=== PATIENT | male | born 1965 | race Caucasian/White ===

== ENCOUNTER 2020-08-28 17:38 | Inpatient (IN) ==
[2020-08-29] MEDS ORDERED: Acetaminophen 325 MG TABLET PO PRN (00:32)
[2020-08-29] MEDS ORDERED: Ondansetron 4 MG/2 ML VIAL IVP PRN (00:32)
[2020-08-29] MEDS ORDERED: Naloxone 0.4 MG/ML INJ IVP PRN (00:32)
[2020-08-29] MEDS ORDERED: Dextrose Gel 15 GM/37.5 ML TUBE PO PRN ×2 (00:34)
[2020-08-29] MEDS ORDERED: D5% in Water 1,000 ML IVC PRN (00:34)
[2020-08-29] MEDS ORDERED: *HR* Dextrose 50 % in Water (Vial) 50 ML VIAL IVP PRN (00:34)
[2020-08-29] MEDS ORDERED: 0.9 % Sodium Chloride 1,000 ML IVC SCH (00:45)
[2020-08-29] MEDS ORDERED: Perflutren Lipid Microsphere 1.3 ML in 0.9 % Sodium Chloride 8.7 ML IVP PRN (00:49)
[2020-08-29] MEDS: Insulin DETEMIR 100 UNIT/ML X5UNITS SUBQ SCH ×2 (01:17→21:01)
[2020-08-29 01:25] LABS: Red Cell Distribution Width 14.2 % (11.5-14.5); Segmented Neutrophils % 51.6 %
[2020-08-29 01:27] LABS: Basophils # 0.1 K/mcL (0.0-0.2); Basophils % 1.2 %; Eosinophils # 0.3 K/mcL (0.0-0.6); Eosinophils % 4.8 %; Hematocrit 43.8 % (37.5-50.1); Immature Granulocytes % 0.9 % (0-4); Immature Platelets 7.5 % (1.1-6.1); Lymphocytes # 1.7 K/mcL (0.6-4.6); Lymphocytes % 30.7 %; Mean Corpuscular Hemoglobin 28.6 pg (28.0-33.3); Mean Corpuscular Volume 89.4 fL (83.0-100.0); Mean Platelet Volume 11.4 fL (9.4-12.4); Monocytes # 0.6 K/mcL (0.0-1.3); Monocytes % 10.8 %; Neutrophils # 2.9 K/mcL (1.6-8.9); Platelet Count 127 K/mcL (140-400); White Blood Count 5.6 K/mcL (4.3-11.1)
[2020-08-29 01:36] LABS: INR 1.1; Prothrombin Time 12.2 Seconds (9.4-12.1)
[2020-08-29 01:38] LABS: Alanine Aminotransferase 9 Units/L (7-52); Albumin 3.8 g/dL (3.5-5.7); Albumin/Globulin Ratio 1.6 (1.1-2.2); Alkaline Phosphatase 51 Units/L (34-104); Aspartate Amino Transferase 10 Units/L (13-39); BUN/Creatinine Ratio 18 (6-26); Bilirubin,Total 0.4 mg/dL (0.3-1.0); Blood Urea Nitrogen 16 mg/dL (6-20); Calcium 8.7 mg/dL (8.6-10.3); Carbon Dioxide 25 mEq/L (23-29); Chloride 106 mEq/L (98-107); Chol/HDL Ratio 3.9 (0-4.9); Cholesterol 131 mg/dL (< 200); Globulin 2.4 g/dL (2.4-3.5); Glucose 267 mg/dL (70-105); HDL Cholesterol 34 mg/dL (40-59); LDL Cholesterol,Calculated 61 mg/dL (< 100); Osmolality,Calculated 301 (280-300); Potassium 3.7 mEq/L (3.5-5.1); Sodium 140 mEq/L (136-145); Total Protein 6.2 g/dL (6.4-8.9); Triglycerides 182 mg/dL (< 150); Troponin I < 0.03 ng/mL (< 0.04); eGFR For African Americans > 60 (> 60); eGFR For Non-African Americans > 60 (> 60)
[2020-08-29] MEDS: Insulin LISPRO 300 UNITS/3 ML VIAL SUBQ SCH ×6 (01:57→20:59)
[2020-08-29 04:04] LABS: Estimated Average Glucose 301 mg/dl; Hemoglobin A1C 12.1 %
[2020-08-29 06:57] LABS: Bacteria,Urine Few per hpf (None-Few); Bilirubin,Urine Negative (Negative); Blood,Urine Negative (Negative); Clarity,Urine Clear (Clear); Color,Urine Light-Yellow (Yellow); Glucose,Urine (UA) >=1000 mg/dL (Normal); Ketones,Urine Negative (Negative); Leukocyte Esterase,Urine Large (Negative); Nitrite,Urine Negative (Negative); PH,Urine 5.5 pH Units (5.0-8.0); Protein,Urine Trace mg/dL (Neg-Trace); Specific Gravity,Urine 1.028 (1.010-1.025); Squamous Epithelial Cell,Urine Few per hpf (None-Few); Urobilinogen,Urine Normal (Normal); WBC,Urine 50-100 per hpf (0-3)
[2020-08-29] MEDS: *HR* Heparin 5,000 UNIT/ML VIAL SQ SCH ×2 (15:06→20:36)
[2020-08-29] MEDS: Baclofen 10 MG TABLET PO SCH (20:33)
[2020-08-29] MEDS: Divalproex (24 HR) 500 MG TABLET PO SCH (20:34)
[2020-08-29] MEDS: traZODone 50 MG TABLET PO SCH (20:35)
[2020-08-29] MEDS: Mirtazapine 15 MG TABLET PO SCH (20:35)
[2020-08-29] MEDS: Pregabalin 75 MG CAPSULE PO SCH (20:35)
[2020-08-29] MEDS ORDERED: NON-FORMULARY MEDICATION 1 EACH EACH (Insulin Glargine,Hum.Rec.Anlog [Lantus Solostar] 100 SQ SCH (21:00)
[2020-08-30 02:12] LABS: Hematocrit 47.4 % (37.5-50.1); Hemoglobin 14.9 g/dL (12.9-16.9); Mean Corpuscular HGB Conc 31.4 g/dL (31.6-35.5); Mean Corpuscular Hemoglobin 28.4 pg (28.0-33.3); Mean Corpuscular Volume 90.5 fL (83.0-100.0); Mean Platelet Volume 11.1 fL (9.4-12.4); Platelet Count 143 K/mcL (140-400); Red Blood Count 5.24 M/mcL (4.19-5.50); Red Cell Distribution Width 14.5 % (11.5-14.5); White Blood Count 5.9 K/mcL (4.3-11.1)
[2020-08-30 02:29] LABS: BUN/Creatinine Ratio 18 (6-26); Blood Urea Nitrogen 15 mg/dL (6-20); Calcium 9.4 mg/dL (8.6-10.3); Carbon Dioxide 27 mEq/L (23-29); Chloride 108 mEq/L (98-107); Glucose 111 mg/dL (70-105); Magnesium 1.9 mg/dL (1.6-2.6); Osmolality,Calculated 300 (280-300); Potassium 3.6 mEq/L (3.5-5.1); Sodium 144 mEq/L (136-145); eGFR For African Americans > 60 (> 60); eGFR For Non-African Americans > 60 (> 60)
[2020-08-30] MEDS: Insulin LISPRO 300 UNITS/3 ML VIAL SUBQ SCH ×6 (05:56→20:21)
[2020-08-30] MEDS: *HR* Heparin 5,000 UNIT/ML VIAL SQ SCH ×3 (05:58→20:14)
[2020-08-30] MEDS: ARIPiprazole 5 MG TABLET PO SCH (08:29)
[2020-08-30] MEDS: Baclofen 10 MG TABLET PO SCH ×2 (08:29→20:15)
[2020-08-30] MEDS: Pregabalin 75 MG CAPSULE PO SCH ×2 (08:29→20:14)
[2020-08-30] MEDS: Magnesium Oxide 400 MG TABLET PO SCH (08:29)
[2020-08-30] MEDS ORDERED: NON-FORMULARY MEDICATION 1 EACH EACH (Ezetimibe [Zetia] 10 MG Tablet) PO SCH (09:00)
[2020-08-30] MEDS: atenoloL 50 MG TABLET PO SCH (13:49)
[2020-08-30] MEDS ORDERED: Ibuprofen 400 MG TABLET PO PRN (15:07)
[2020-08-30] MEDS: Mirtazapine 15 MG TABLET PO SCH (20:14)
[2020-08-30] MEDS: Divalproex (24 HR) 500 MG TABLET PO SCH (20:15)
[2020-08-30] MEDS: traZODone 50 MG TABLET PO SCH (20:15)
[2020-08-30] MEDS: Insulin DETEMIR 100 UNIT/ML X5UNITS SUBQ SCH (20:21)
[2020-08-31] MEDS: Insulin LISPRO 300 UNITS/3 ML VIAL SUBQ SCH ×4 (05:16→19:00)
[2020-08-31 05:30] LABS: Hematocrit 45.9 % (37.5-50.1); Hemoglobin 14.5 g/dL (12.9-16.9); Mean Corpuscular HGB Conc 31.6 g/dL (31.6-35.5); Mean Corpuscular Hemoglobin 28.9 pg (28.0-33.3); Mean Corpuscular Volume 91.6 fL (83.0-100.0); Mean Platelet Volume 11.6 fL (9.4-12.4); Platelet Count 136 K/mcL (140-400); Red Blood Count 5.01 M/mcL (4.19-5.50); Red Cell Distribution Width 14.5 % (11.5-14.5); White Blood Count 6.7 K/mcL (4.3-11.1)
[2020-08-31 05:46] LABS: BUN/Creatinine Ratio 20 (6-26); Blood Urea Nitrogen 20 mg/dL (6-20); Calcium 9.5 mg/dL (8.6-10.3); Carbon Dioxide 25 mEq/L (23-29); Chloride 104 mEq/L (98-107); Glucose 229 mg/dL (70-105); Osmolality,Calculated 298 (280-300); Potassium 3.9 mEq/L (3.5-5.1); Sodium 139 mEq/L (136-145); eGFR For African Americans > 60 (> 60); eGFR For Non-African Americans > 60 (> 60)
[2020-08-31] MEDS: *HR* Heparin 5,000 UNIT/ML VIAL SQ SCH ×3 (06:37→21:28)
[2020-08-31] MEDS ORDERED: Isovue-370 500 ML BOTTLE IVP ONE (07:53)
[2020-08-31] MEDS: Magnesium Oxide 400 MG TABLET PO SCH (09:36)
[2020-08-31] MEDS: atenoloL 50 MG TABLET PO SCH (09:36)
[2020-08-31] MEDS: Pregabalin 75 MG CAPSULE PO SCH ×2 (09:36→21:27)
[2020-08-31] MEDS: Baclofen 10 MG TABLET PO SCH ×2 (09:36→21:28)
[2020-08-31] MEDS: ARIPiprazole 5 MG TABLET PO SCH (12:29)
[2020-08-31] MEDS: Divalproex (24 HR) 500 MG TABLET PO SCH (21:27)
[2020-08-31] MEDS: traZODone 50 MG TABLET PO SCH (21:27)
[2020-08-31] MEDS: Insulin DETEMIR 100 UNIT/ML X5UNITS SUBQ SCH (21:28)
[2020-08-31] MEDS: Mirtazapine 15 MG TABLET PO SCH (21:28)
[2020-09-01 01:56] LABS: Hemoglobin 14.6 g/dL (12.9-16.9); Mean Corpuscular HGB Conc 33.2 g/dL (31.6-35.5); Mean Corpuscular Hemoglobin 29.7 pg (28.0-33.3); Mean Corpuscular Volume 89.4 fL (83.0-100.0); Mean Platelet Volume 11.3 fL (9.4-12.4); Platelet Count 147 K/mcL (140-400); Red Blood Count 4.92 M/mcL (4.19-5.50); Red Cell Distribution Width 14.4 % (11.5-14.5); White Blood Count 5.6 K/mcL (4.3-11.1)
[2020-09-01 02:19] LABS: BUN/Creatinine Ratio 17 (6-26); Blood Urea Nitrogen 16 mg/dL (6-20); Calcium 9.3 mg/dL (8.6-10.3); Carbon Dioxide 26 mEq/L (23-29); Chloride 104 mEq/L (98-107); Glucose 208 mg/dL (70-105); Osmolality,Calculated 297 (280-300); Potassium 3.8 mEq/L (3.5-5.1); Sodium 140 mEq/L (136-145); eGFR For African Americans > 60 (> 60); eGFR For Non-African Americans > 60 (> 60)
[2020-09-01] MEDS: *HR* Heparin 5,000 UNIT/ML VIAL SQ SCH ×2 (05:04→12:45)
[2020-09-01] MEDS: atenoloL 50 MG TABLET PO SCH (08:35)
[2020-09-01] MEDS: ARIPiprazole 5 MG TABLET PO SCH (08:35)
[2020-09-01] MEDS: Magnesium Oxide 400 MG TABLET PO SCH (08:36)
[2020-09-01] MEDS: Pregabalin 75 MG CAPSULE PO SCH ×2 (08:36→21:54)
[2020-09-01] MEDS: Baclofen 10 MG TABLET PO SCH ×2 (08:36→21:55)
[2020-09-01] MEDS: Insulin LISPRO 300 UNITS/3 ML VIAL SUBQ SCH ×3 (08:37→17:39)
[2020-09-01] MEDS: *HR* Rivaroxaban 10 MG TABLET PO SCH (17:38)
[2020-09-01] MEDS: Mirtazapine 15 MG TABLET PO SCH (21:54)
[2020-09-01] MEDS: traZODone 50 MG TABLET PO SCH (21:54)
[2020-09-01] MEDS: Divalproex (24 HR) 500 MG TABLET PO SCH (21:54)
[2020-09-01] MEDS: Insulin DETEMIR 100 UNIT/ML X5UNITS SUBQ SCH (22:05)
[2020-09-02 03:19] LABS: Hematocrit 48.3 % (37.5-50.1); Hemoglobin 15.9 g/dL (12.9-16.9); Mean Corpuscular HGB Conc 32.9 g/dL (31.6-35.5); Mean Corpuscular Hemoglobin 29.6 pg (28.0-33.3); Mean Corpuscular Volume 89.9 fL (83.0-100.0); Mean Platelet Volume 10.7 fL (9.4-12.4); Platelet Count 162 K/mcL (140-400); Red Blood Count 5.37 M/mcL (4.19-5.50); Red Cell Distribution Width 14.6 % (11.5-14.5); White Blood Count 6.6 K/mcL (4.3-11.1)
[2020-09-02 03:38] LABS: BUN/Creatinine Ratio 16 (6-26); Blood Urea Nitrogen 17 mg/dL (6-20); Calcium 9.7 mg/dL (8.6-10.3); Carbon Dioxide 28 mEq/L (23-29); Chloride 102 mEq/L (98-107); Glucose 175 mg/dL (70-105); Osmolality,Calculated 296 (280-300); Sodium 140 mEq/L (136-145); eGFR For African Americans > 60 (> 60); eGFR For Non-African Americans > 60 (> 60)
[2020-09-02] MEDS: Insulin LISPRO 300 UNITS/3 ML VIAL SUBQ SCH ×3 (08:48→16:40)
[2020-09-02] MEDS: atenoloL 50 MG TABLET PO SCH (08:49)
[2020-09-02] MEDS: Magnesium Oxide 400 MG TABLET PO SCH (08:49)
[2020-09-02] MEDS: Pregabalin 75 MG CAPSULE PO SCH ×2 (08:49→20:51)
[2020-09-02] MEDS: ARIPiprazole 5 MG TABLET PO SCH (08:49)
[2020-09-02] MEDS: Baclofen 10 MG TABLET PO SCH ×2 (08:49→20:51)
[2020-09-02] MEDS: *HR* Rivaroxaban 10 MG TABLET PO SCH (16:40)
[2020-09-02] MEDS: traZODone 50 MG TABLET PO SCH (20:51)
[2020-09-02] MEDS: Divalproex (24 HR) 500 MG TABLET PO SCH (20:51)
[2020-09-02] MEDS: Mirtazapine 15 MG TABLET PO SCH (20:51)
[2020-09-02] MEDS: Insulin DETEMIR 100 UNIT/ML X5UNITS SUBQ SCH (21:28)
[2020-09-03 05:28] LABS: Hematocrit 46.6 % (37.5-50.1); Hemoglobin 14.8 g/dL (12.9-16.9); Mean Corpuscular HGB Conc 31.8 g/dL (31.6-35.5); Mean Corpuscular Volume 91.4 fL (83.0-100.0); Mean Platelet Volume 10.8 fL (9.4-12.4); Platelet Count 145 K/mcL (140-400); Red Cell Distribution Width 14.6 % (11.5-14.5); White Blood Count 6.8 K/mcL (4.3-11.1)
[2020-09-03 05:49] LABS: BUN/Creatinine Ratio 20 (6-26); Blood Urea Nitrogen 19 mg/dL (6-20); Carbon Dioxide 28 mEq/L (23-29); Chloride 102 mEq/L (98-107); Glucose 259 mg/dL (70-105); Osmolality,Calculated 297 (280-300); Sodium 138 mEq/L (136-145); eGFR For African Americans > 60 (> 60); eGFR For Non-African Americans > 60 (> 60)
[2020-09-03] MEDS: Magnesium Oxide 400 MG TABLET PO SCH (07:53)
[2020-09-03] MEDS: Baclofen 10 MG TABLET PO SCH (07:53)
[2020-09-03] MEDS: ARIPiprazole 5 MG TABLET PO SCH (07:53)
[2020-09-03] MEDS: atenoloL 50 MG TABLET PO SCH (07:54)
[2020-09-03] MEDS: Pregabalin 75 MG CAPSULE PO SCH (07:54)
[2020-09-03] MEDS: Insulin LISPRO 300 UNITS/3 ML VIAL SUBQ SCH ×3 (08:08→17:32)
[2020-09-03 10:22] VITALS: BP 132/86; PULSE 58; TEMP 97.7; O2SAT 95
[2020-09-03] MEDS: *HR* Rivaroxaban 10 MG TABLET PO SCH (17:34)
[2020-09-03] MEDS ORDERED: Insulin DETEMIR 100 UNIT/ML X5UNITS SUBQ SCH (21:00)
== END 2020-09-03 18:05 | disposition other institution (70) | DRG 880 ==
LOC: 2NENU → SUATTDRO 23:22
PROVIDERS: ADMIT Pharmacist; ATTEND Internal Medicine